=== PATIENT | male | born 1960 | race Caucasian/White ===

== ENCOUNTER 2016-09-10 06:00 | Observation (INO) | payer MEDICARE ==
[~2016-09-10] VITALS: Ht 185.4 cm; Wt 118.2 kg
[~2016-09-10 06:00] MED LIST: BACL10TA PO; BUPR100 PO; CELE200 PO; CeFAZolin 2 GM/DEXTROSE 50 ML IV ONE; ESCI20TA PO; FentaNYL CITRATE-PF 100 MCG/2 ML VIAL IVP ONE; GLYC1SUP PR; MIDAZOLAM HCL 2 MG/2 ML VIAL IVP ONE; OXYC10 PO; RINGERS SOLUTION,LACTATED 1,000 ML IV ONE; SENN8.6T20 PO; TIZA4TAB4 PO; TYL3 PO
[2016-09-10] MEDS ORDERED: MUPIROCIN CALCIUM 2% 22 GM OINTMENT ONE (06:40)
[2016-09-10] MEDS ORDERED: BUPIVACAINE HCL/PF 0.5% 30 ML VIAL ONE (06:40)
[2016-09-10] MEDS ORDERED: VANCOMYCIN HCL 1 GM/VIAL ONE (06:40)
[2016-09-10] MEDS ORDERED: GUM MASTIC/STORAX/MSAL/ALCOHOL LIQUID 0.67 ML VIAL TP ONE (06:40)
[2016-09-10] MEDS ORDERED: SODIUM CHLORIDE 0.9% 0 ML ONE ×2 (06:41→08:23)
[2016-09-10] MEDS ORDERED: SODIUM CL IRRIG SOLN BAG 3,000 ML IRRIG ONE (06:41)
[2016-09-10] MEDS ORDERED: RINGERS SOLUTION,LACTATED 1,000 ML IV ONE (06:41)
[2016-09-10 06:48] LABS: BASOPHILS % (AUTO) 0.4 % (0.0-2.0); EOSINOPHILS % (AUTO) 4.1 % (1.0-6.0); HEMATOCRIT 49.5 % (41-53); HEMOGLOBIN 17.1 g/dL (13.5-17.5); LYMPHOCYTES # (AUTO) 1.9 K/uL (1.0-4.8); LYMPHOCYTES % (AUTO) 29.6 % (22.0-44.0); MEAN CORPUSCULAR HEMOGLOBIN 33.5 pg (26.0-34.0); MEAN CORPUSCULAR HGB CONC 34.6 G/dL (31.0-37.0); MEAN CORPUSCULAR VOLUME 97 fL (80-100); MONOCYTES # (AUTO) 0.6 K/uL (0.1-1.0); MONOCYTES % (AUTO) 9.7 % (2.0-9.0); NEUTROPHILS # (AUTO) 3.6 K/uL (1.8-7.7); NEUTROPHILS % (AUTO) 56.2 % (40.0-70.0); PLATELET COUNT (AUTO) 186 K/uL (150-450); RED BLOOD CELL COUNT(AUTO) 5.12 MIL/uL (4.50-5.90); RED CELL DISTRIBUTION WIDTH 13.8 % (11.5-14.5); WHITE BLOOD COUNT (AUTO) 6.3 K/uL (4.5-11.0)
[2016-09-10 06:56] LABS: ANION GAP 9 mmol/L (8-16); CALCIUM, TOTAL 9.7 mg/dL (8.8-10.5); CARBON DIOXIDE 29 mmol/L (22-29); CHLORIDE 107 mmol/L (98-107); CREATININE 1.11 mg/dL (0.60-1.30); GLOMERULAR FILTR. RATE CALC > 60 mL/min (>60); POTASSIUM 4.7 mmol/L (3.5-5.1); SODIUM SERUM 145 mmol/L (136-145); UREA NITROGEN, BLOOD 19 mg/dL (7-18)
[2016-09-10 06:59] LABS: INR 0.9 (0.9-1.1)
[2016-09-10] MEDS ORDERED: LIDOCAINE HCL/PF 1% 2 ML VIAL ID ONE (07:00)
[2016-09-10] MEDS ORDERED: CeFAZolin 2 GM/DEXTROSE 50 ML IV ONE (07:00)
[2016-09-10 07:02] LABS: ALANINE AMINOTRANSFERASE 47 U/L (12-78); ALBUMIN 4.1 g/dL (3.4-5.0); ASPARTATE AMINOTRANSFERASE 22 U/L (15-37); BILIRUBIN,TOTAL 0.3 mg/dL (0.1-1.0); TOTAL PROTEIN, SERUM 7.8 g/dL (6.4-8.2)
[2016-09-10] MEDS ORDERED: BUPIVACAINE LIPOSOME/PF 1.3%-13.3MG/ML SUSPENSION 20 ML VIAL INJ ONE (07:30)
[2016-09-10] MEDS ORDERED: MICROFIBRILLAR COLLAGEN 1 GM PACKAGE TP ONE (08:23)
[2016-09-10] MEDS ORDERED: FentaNYL CITRATE-PF 100 MCG/2 ML VIAL IVP PRN (11:15)
[2016-09-10] MEDS: OXYGEN THERAPY IH SCH ×2 (11:15→20:44)
[2016-09-10] MEDS ORDERED: SENNA 218 MG/5 ML SYRUP ORAL.SYG GT PRN (11:15)
[2016-09-10] MEDS ORDERED: ACETAMINOPHEN/CODEINE 300-30 MG TABLET PO PRN (11:15)
[2016-09-10] MEDS ORDERED: MEPERIDINE-PF 25 MG/ML SYRINGE IVP PRN (11:15)
[2016-09-10] MEDS: HYDROmorphone 2 MG/ML SYRINGE IVP PRN ×2 (11:37→11:47)
[2016-09-10] MEDS ORDERED: MEPERIDINE-PF 25 MG/ML SYRINGE ONE (11:39)
[2016-09-10] MEDS ORDERED: HYDROmorphone 2 MG/ML SYRINGE IVP PRN (11:45)
[2016-09-10 12:49] VITALS: BP 138/71
[2016-09-10] MEDS: BACLOFEN 10 MG TABLET PO SCH ×2 (16:22→20:40)
[2016-09-10] MEDS: CeFAZolin 1 GM/DEXTROSE 50 ML IV SCH ×2 (16:22→23:43)
[2016-09-10 16:50] VITALS: BP 137/72
[2016-09-10] MEDS ORDERED: HYDROCODONE/ACETAMINOPHEN 5-325 MG TABLET PO PRN ×2 (19:45)
[2016-09-10 20:15] VITALS: BP 138/72
[2016-09-10] MEDS: BuPROPion HCL 100 MG SR TABLET PO SCH (20:42)
[2016-09-10] MEDS: LANSOPRAZOLE 30 MG SOLUBLE TABLET PO SCH (20:43)
[2016-09-10] MEDS: ENOXAPARIN SODIUM 40 MG/0.4 ML PF SYRINGE SQ SCH (20:43)
[2016-09-10] MEDS ORDERED: ESCITALOPRAM OXALATE 20 MG TABLET PO SCH (21:00)
[2016-09-10 23:24] VITALS: BP 150/89
[2016-09-10] MEDS ORDERED: SODIUM CHLORIDE 0.9% 500 ML IV ONE (23:40)
[2016-09-11 04:58] VITALS: BP 153/89
[2016-09-11 07:45] VITALS: BP 151/75
[2016-09-11] MEDS: OXYGEN THERAPY IH SCH (08:00)
[2016-09-11] MEDS: ENOXAPARIN SODIUM 40 MG/0.4 ML PF SYRINGE SQ SCH (08:17)
[2016-09-11] MEDS: LANSOPRAZOLE 30 MG SOLUBLE TABLET PO SCH (08:18)
[2016-09-11] MEDS: BuPROPion HCL 100 MG SR TABLET PO SCH (08:18)
[2016-09-11] MEDS: BACLOFEN 10 MG TABLET PO SCH (08:18)
[2016-09-11] MEDS ORDERED: CELECOXIB 200 MG CAPSULE PO SCH (09:00)
[2016-09-11] MEDS ORDERED: OxyCODONE HCL 10 MG ER TABLET PO SCH (09:00)
[2016-09-11] MEDS ORDERED: GLYCERIN PR SCH (09:00)
[2016-09-11 11:20] VITALS: BP 158/99
== END 2016-09-11 12:55 | disposition home or self-care (01) ==
LOC: 4E 06:00
PROVIDERS: ADMIT Orthopaedic Surgery; ATTEND Orthopaedic Surgery
DX: M21.921 Unspecified acquired deformity of right upper arm (principal); R53.2 Functional quadriplegia; R32 Unspecified urinary incontinence; E66.01 Morbid (severe) obesity due to excess calories; G89.29 Other chronic pain; Z74.01 Bed confinement status; Z87.820 Personal history of traumatic brain injury
CPT/HCPCS: 25100; 25280 ×8; 26037; 26478 ×4; 26525; 26593; 36415; 64708; 64719; 80053; 85025; 85610; 85730; 87081; 93005; 96365; 96372 ×2; 96375; 97163; 97166; 97530; C1768; C9290; G0378 ×2; G8981; G8982; G8987; G8988; G8989; J0690 ×2; J1170; J1650 ×2; J2175; J2250; J3010; J3490 ×2; J7040; J7120; J3370; J7050